=== PATIENT | female | born 1950 | race Caucasian/White ===

== ENCOUNTER 2016-07-16 08:00 | Outpatient (CLI) | payer MEDICARE, OTHER | END 2016-07-16 23:59 | disposition home or self-care (01) | DX: N39.0 Urinary tract infection, site not specified (principal) ==

== ENCOUNTER 2016-07-26 09:43 | Outpatient (CLI) | payer MEDICARE, OTHER | END 2016-07-26 23:59 | DX: R82.4 Acetonuria (principal); N39.0 Urinary tract infection, site not specified ==

== ENCOUNTER 2017-02-16 17:55 | Emergency (ER) | payer MEDICARE, OTHER ==
--- NOTE | 2017-02-16 19:39 | XRAY Preliminary Report ---
Exam: XR Hand 3 View RT IMPRESSION: No fracture or dislocation. First carpal metacarpal joint osteoarthritis. [facility] SITE ID: [id number]
--- NOTE | 2017-02-16 19:40 | ED Physician Documentation ---
PD HPI UPPER EXT INJURY - Stated complaint Stated Complaint: RT HAND INJ - Chief complaint Chief Complaint: Trauma Ext - History obtained from History obtained from: Patient - History of Present Illness Location: Right, Wrist, Hand Type of injury: Blunt / blow (struck it while walking dog yesterday. More bruised today.) Where injury occurred: Home Timing - onset: Yesterday Timing - details: Abrupt onset, Still present Improved by: Rest Worsened by: Palpating Associated symptoms: Swelling, Discolored (bruised). No: Weakness, Numbness Similar symptoms before: Has not had sx before Recently seen: Not recently seen Review of Systems Neurologic: denies: Focal weakness, Numbness PD PAST MEDICAL HISTORY - Past Medical History Past Medical History: Yes : Kidney stones Other Past Medical History: Colon cancer, Kidney stones - Past Surgical History Past Surgical History: Yes General: Bowel surgery, Colonoscopy /AUTOCAD DESIGNER: section - Present Medications Home Medications: Ambulatory Orders Medication Instructions Recorded Confirmed Acyclovir 1 cap PO PRN PRN 02/16/17 02/16/17 Ibuprofen [Motrin] 600 mg PO TID #30 tab 02/16/17 Nitrofurantoin [Macrobid] 100 mg PO PRN PRN 02/16/17 02/16/17 - Allergies Allergies/Adverse Reactions: Allergies Allergy/AdvReac Type Severity Reaction Status Date / Time prednisone Allergy Nausea Verified 02/16/17 18:30 sulfamethoxazole Allergy Rash Verified 02/16/17 18:30 [From Bactrim] trimethoprim [From Bactrim] Allergy Rash Verified 02/16/17 18:30 Penicillins AdvReac Unknown Verified 02/16/17 18:32 tolterodine [From Detrol] AdvReac Unknown Verified 02/16/17 18:32 - Social History Does the pt smoke?: No Smoking Status: Never smoker Does the pt drink ETOH?: Yes Does the pt have substance abuse?: No - Immunizations Immunizations are current?: No Immunizations: TDAP >10years/unknown - POLST Patient has POLST: No PD ED PE NORMAL - Vitals Vital signs reviewed: Yes - General General: Alert and oriented X 3, No acute distress, Well developed/nourished - Derm Derm: Normal color, Warm and dry - Extremities Extremities: Other (right dorsal wrist and hand with local tenderness and bruising. No obvious deformity. Can ldr nurse okay. ) - Neuro Neuro: No motor deficit, No sensory deficit Results - Vitals Vitals: Oxygen O2 Source Room air - Rads (name of study) wrist Radiology: Prelim report reviewed (no fracture) PD MEDICAL DECISION MAKING - ED course Complexity details: reviewed results (no fractures), considered differential, d/ w patient Departure - Departure Disposition: 01 Home, Self Care Clinical Impression: Contusion of wrist, right Qualifiers: Encounter type: initial encounter Qualified Code(s): S60.211A - Contusion of right wrist, initial encounter Condition: Stable Record reviewed to determine appropriate education?: Yes Instructions: ED Contusion Upper Ext Follow-Up: Hoang Padilla MD [Primary Care Provider] - Prescriptions: Ibuprofen [Motrin] 600 mg PO TID #30 tab Comments: No fracture seen on x-ray. Continue the ibuprofen 3-4 times a day. Add Tylenol to it as needed. Cool towels or ice to the area periodically for swelling. The bruising should resolve slowly over several days to week. Activity as able to stand comfort. Discharge Date/Time: 02/16/17 20:01
--- NOTE | 2017-02-16 19:40 | XRAY Preliminary Report ---
Exam: XR Wrist 4 View RT IMPRESSION: First carpal metacarpal joint osteoarthritis. No fracture or dislocation. [facility] SITE ID: [id number]
--- NOTE | 2017-02-16 19:41 | XRAY Report ---
EXAM: RIGHT HAND RADIOGRAPHY EXAM DATE: 02/16/2017 07:00 PM. CLINICAL HISTORY: Trauma. COMPARISON: None. TECHNIQUE: 3 views. FINDINGS: Bones: Normal. No fractures or bone lesions. Joints: First carpometacarpal joint degenerative changes. No dislocations. Soft Tissues: Normal. No soft tissue swelling. IMPRESSION: No fracture or dislocation. First carpal metacarpal joint osteoarthritis. [facility] Referring Provider Line: [phone] SITE ID: [id number]
--- NOTE | 2017-02-16 19:43 | XRAY Report ---
EXAM: RIGHT WRIST RADIOGRAPHY EXAM DATE: 02/16/2017 07:00 PM. CLINICAL HISTORY: Trauma. COMPARISON: None. TECHNIQUE: 3 views. FINDINGS: Bones: Normal. No fractures or bone lesions. Joints: First carpometacarpal joint degenerative changes. Soft Tissues: Normal. No soft tissue swelling. IMPRESSION: First carpal metacarpal joint osteoarthritis. No fracture or dislocation. [facility] Referring Provider Line: [phone] SITE ID: [id number]
[2017-02-16] MEDS ORDERED: IBUPROFEN 600 MG TABLET PO STA (19:45)
[2017-02-16] MEDS ORDERED: ACETAMINOPHEN 325 MG TABLET PO STA (19:45)
[2017-02-16] MEDS ORDERED: ACETAMINOPHEN 325 MG TABLET PO ONE (19:59)
[2017-02-16] MEDS ORDERED: IBUPROFEN 600 MG TABLET PO ONE (20:00)
[2017-02-16 20:06] VITALS: BP 129/90
== END 2017-02-16 20:01 | disposition home or self-care (01) ==
LOC: ED 17:55
DX: S60.211A Contusion of right wrist, initial encounter (principal); W22.8XXA Striking against or struck by other objects, initial encounter; Y93.K1 Activity, walking an animal; Y92.009 Unspecified place in unspecified non-institutional (private) residence as the place of occurrence of the external cause; C18.9 Malignant neoplasm of colon, unspecified
CPT/HCPCS: 73110; 73130; 99283; A9270

== ENCOUNTER 2018-07-19 23:16 | Emergency (ER) | payer MEDICARE, OTHER ==
[2018-07-19 23:26] VITALS: BP 147/96
[2018-07-19 23:38] LABS: GLUCOSE, URINE (UA) 100 mg/dL (NEGATIVE); KETONES,URINE (UA) TRACE mg/dL (NEGATIVE)
[2018-07-19 23:39] LABS: CLARITY,URINE CLEAR (CLEAR)
[2018-07-19 23:40] LABS: PH,URINE 5.5 PH (5.0-7.5)
[2018-07-19 23:41] LABS: BILIRUBIN,URINE NEGATIVE (NEGATIVE); ICTOTEST,URINE NEGATIVE
[2018-07-19 23:46] LABS: BACTERIA,URINE Few /HPF (None Seen); SQUAMOUS EPITHELIAL CELL,UR NONE SEEN (<= Few)
--- NOTE | 2018-07-20 00:44 | ED Physician Documentation ---
PD HPI FEMALE - Stated complaint Stated Complaint: FEM - Chief complaint Chief Complaint: UTI - History obtained from History obtained from: Patient - History of Present Illness Timing - onset: Today Timing - duration: Hours Timing - details: Gradual onset Pain level max: 6 Associated symptoms: Dysuria, Urinary frequency. No: Fever, Abdominal pain, Back pain Similar symptoms before: Diagnosis (UTI) Recently seen: Clinic - Additional information Additional information: UTI 3 weeks ago, completed course of antibiotic (bactrim). Symptoms returned 4-5 days ago and she was given a 4-day course of bactrim, which she completed yesterday. Earlier this evening, symptoms returned. She c/o burning dysuria, suprapubic pain, urinary frequency. She took pyridium without relief. She also took 1 dose of macrobid, which she had been prescribed previously for post- coital prophylaxis against UTI. This is not an outdated () rx. Review of Systems Constitutional: denies: Fever GI: denies: Abdominal Pain (suprapubic discomfort but no abdominal pain per se), Nausea, Vomiting : reports: Dysuria, Frequency Musculoskeletal: denies: Back pain PD PAST MEDICAL HISTORY - Past Medical History Cardiovascular: Hypertension, High cholesterol : Kidney stones HEENT: Macular degeneration - Past Surgical History Past Surgical History: Yes General: Bowel surgery, Colonoscopy /PRINTING SUPERVISOR: section - Present Medications Home Medications: Ambulatory Orders Medication Instructions Recorded Confirmed Acyclovir 1 cap PO PRN PRN 02/16/17 02/16/17 Ibuprofen [Motrin] 600 mg PO TID #30 tab 02/16/17 Nitrofurantoin [Macrobid] 100 mg PO PRN PRN 02/16/17 02/16/17 Hydrocodone/Acetaminophen 1 - 2 each PO Q6H PRN #7 tablet 07/20/18 [Hydrocodon-Acetaminophen 5-325] - Allergies Allergies/Adverse Reactions: Allergies Allergy/AdvReac Type Severity Reaction Status Date / Time prednisone Allergy Nausea Verified 02/16/17 18:30 Penicillins AdvReac Unknown Verified 02/16/17 18:32 tolterodine [From Detrol] AdvReac Unknown Verified 02/16/17 18:32 - Social History Does the pt smoke?: No Smoking Status: Never smoker Does the pt drink ETOH?: Yes Does the pt have substance abuse?: No - Immunizations Immunizations are current?: No Immunizations: TDAP >10years/unknown - POLST Patient has POLST: No PD ED PE NORMAL - Vitals Vital signs reviewed: Yes - General General: Alert and oriented X 3, No acute distress, Well developed/nourished - Abdomen Abdomen: Soft, Non tender - Back Back: No CVA TTP - Derm Derm: Normal color, Warm and dry Results - Vitals Vitals: Vital Signs - 24 hr 07/19/18 23:19 Temperature 36.8 C Heart Rate 72 Respiratory 18 Rate Blood Pressure 147/96 H O2 Saturation 96 Oxygen O2 Source Room air - Labs Labs: Laboratory Tests 07/19/18 23:35 Urine Color DK. ORANGE Urine Clarity CLEAR Urine pH 5.5 Ur Specific Sunbright 1.015 Urine Protein Urine Glucose (UA) 100 H Urine Ketones TRACE Urine Occult Blood Urine Nitrite Urine Bilirubin NEGATIVE Urine Urobilinogen Ur Leukocyte Esterase Urine RBC 6-10 H Urine WBC >25 H Ur Squamous Epith Cells NONE SEEN Urine Bacteria Few Ur Microscopic Review INDICATED Urine Culture Comments INDICATED PD MEDICAL DECISION MAKING - ED course Complexity details: reviewed results, considered differential, d/w patient Departure - Departure Disposition: 01 Home, Self Care Clinical Impression: Urinary tract infection Qualifiers: Urinary tract infection type: acute cystitis Hematuria presence: with hematuria Qualified Code(s): N30.01 - Acute cystitis with hematuria Condition: Good Instructions: ED UTI Cystitis Female Follow-Up: Hoang Padilla MD [Primary Care Provider] - (3-4 days if symptoms persist/worsen) Prescriptions: Hydrocodone/Acetaminophen [Hydrocodon-Acetaminophen 5-325] 1 - 2 each PO Q6H PRN #7 tablet PRN Reason: pain Comments: You can take the NITROFURANTOIN (Macrobid) 100mg by mouth twice per day for 7 days. You already have this prescription. You can continue to use the pyridium as prescribed. You can also take ibuprofen 400mg by mouth every 4 hours or 600mg by mouth every 6 hours as needed for pain. You can also use the hydrocodone/acetaminophen for pain if these other measures have not adequately controlled the pain. Discharge Date/Time: 07/20/18 01:29
[2018-07-20] MEDS ORDERED: IBUPROFEN 600 MG TABLET PO STA (01:02)
[2018-07-20] MEDS ORDERED: HYDROcod/ACET 5/325 Prepack 4 PO STA (01:04)
== END 2018-07-20 01:29 | disposition home or self-care (01) ==
LOC: ED 23:16
DX: N30.01 Acute cystitis with hematuria (principal); I10 Essential (primary) hypertension
CPT/HCPCS: 81001; 87086; 87181; 99283; A9270; 81003